=== PATIENT | male | born 1960 | race Caucasian/White ===

== ENCOUNTER → 2018-06-21 | Outpatient (CLI) | payer BC | LOC: COL.VAS 08:05 | DX: I10 Essential (primary) hypertension (principal) ==

== ENCOUNTER → 2018-10-31 | Outpatient (CLI) | payer BC | LOC: COL.CARD 11:44 | DX: R00.2 Palpitations (principal); I10 Essential (primary) hypertension ==

== ENCOUNTER → 2019-03-01 | Outpatient (CLI) | payer BC | LOC: COL.RAD 07:30 | DX: S43.491A Other sprain of right shoulder joint, initial encounter (principal); M75.121 Complete rotator cuff tear or rupture of right shoulder, not specified as traumatic ==

== ENCOUNTER 2021-02-23 06:02 | Emergency (ER) | payer BC ==
[~2021-02-23] VITALS: Ht 180.3 cm; Wt 130.9 kg
[2021-02-23 06:14] VITALS: BP 125/95; TEMP 98.2
[2021-02-23 06:30] LABS: COLLECTION METHOD CLEAN CATCH
[2021-02-23 06:49] LABS: BASO % 0.3 % (0.0-2.0); EOS % 0.3 % (0-4.0); GRAN # 9.5 (1.4-6.5); GRAN % 81.6 % (42.2-75.2); HEMATOCRIT 47.8 % (42.0-52.0); HEMOGLOBIN 15.9 g/dl (13.5-18.0); LYMPH # 1.4 (1.2-3.4); LYMPH % 12.3 % (20.0-51.0); MEAN CELL VOLUME 87 fl (80.0-100.0); MEAN CORPUSCULAR HEMOGLOBIN 29 pg (27.0-31.0); MEAN CORPUSCULAR HGB CONC 33 g/dl (33.0-37.0); MEAN PLATELET VOLUME 9.7 fl (7.4-10.4); MONO # 0.6 (0.1-0.6); MONO % 5.1 % (1.7-9.3); PLATELET COUNT 249 K/mm3 (130-400); RED BLOOD COUNT 5.51 M/mm3 (4.20-5.60)
[2021-02-23 06:58] LABS: CALCIUM 9.6 mg/dL (8.4-10.2); CREATININE, serum 1.31 (0.66-1.25); POTASSIUM 4.4 mmol/L (3.4-5.0)
[2021-02-23 07:08] LABS: MUCOUS Present /lpf; PH 5 (5-8); SQUAMOUS EPITHELIAL None Seen /hpf; URINE APPEARANCE Clear; URINE BACTERIA None Seen /hpf; URINE BILIRUBIN Negative (NEGATIVE); URINE BLOOD 1+ (NEGATIVE); URINE COLOR Yellow; URINE GLUCOSE 3+ (NEGATIVE); URINE KETONE Negative (NEGATIVE); URINE LEUKOCYTE ESTERASE Negative (NEGATIVE); URINE NITRATE Negative (NEGATIVE); URINE PROTEIN(semi-quant) Negative (NEGATIVE); URINE UROBILINOGEN Negative (NEGATIVE)
[2021-02-23 07:30] VITALS: PULSE 63
== END 2021-02-23 07:30 | disposition home or self-care (01) ==
LOC: COL.ER 06:02
PROVIDERS: Emergency Medicine
DX: R10.9 Unspecified abdominal pain (principal); Z88.5 Allergy status to narcotic agent; Z87.442 Personal history of urinary calculi
CPT/HCPCS: J2405

== ENCOUNTER 2021-02-24 22:53 | Emergency (ER) | payer BC ==
[~2021-02-24] VITALS: Ht 180.3 cm; Wt 129.5 kg
[2021-02-24 23:30] VITALS: TEMP 98.9
[2021-02-25 00:34] LABS: COLLECTION METHOD CLEAN CATCH
[2021-02-25 00:40] LABS: MUCOUS Present /lpf; PH 5 (5-8); SQUAMOUS EPITHELIAL None Seen /hpf; URINE APPEARANCE Clear; URINE BACTERIA None Seen /hpf; URINE BILIRUBIN Negative (NEGATIVE); URINE BLOOD 1+ (NEGATIVE); URINE COLOR Straw; URINE GLUCOSE 3+ (NEGATIVE); URINE KETONE Trace (NEGATIVE); URINE LEUKOCYTE ESTERASE Negative (NEGATIVE); URINE NITRATE Negative (NEGATIVE); URINE PROTEIN(semi-quant) Negative (NEGATIVE); URINE RBC 0-2 /hpf; URINE UROBILINOGEN Negative (NEGATIVE)
[2021-02-25 01:01] LABS: BASO # 0.1 (0.0-0.2); BASO % 0.4 % (0.0-2.0); EOS # 0.1 (0.0-0.7); EOS % 0.6 % (0-4.0); GRAN % 77.2 % (42.2-75.2); HEMATOCRIT 45.9 % (42.0-52.0); HEMOGLOBIN 15.1 g/dl (13.5-18.0); LYMPH # 1.7 (1.2-3.4); LYMPH % 11.8 % (20.0-51.0); MEAN CELL VOLUME 87 fl (80.0-100.0); MEAN CORPUSCULAR HEMOGLOBIN 29 pg (27.0-31.0); MEAN CORPUSCULAR HGB CONC 33 g/dl (33.0-37.0); MEAN PLATELET VOLUME 9.7 fl (7.4-10.4); MONO # 1.4 (0.1-0.6); MONO % 9.6 % (1.7-9.3); PLATELET COUNT 226 K/mm3 (130-400); RED BLOOD COUNT 5.28 M/mm3 (4.20-5.60); REDCELL DISTRIBUTION WIDTH-CV 13.2 % (11.5-14.5)
[2021-02-25 01:12] LABS: ALBUMIN 4.2 gm/dL (3.5-5.0); BILIRUBIN,TOTAL 0.7 mg/dL (0.0-1.0); CALCIUM 9.7 mg/dL (8.4-10.2); CREATININE, serum 1.79 (0.66-1.25); POTASSIUM 4.4 mmol/L (3.4-5.0); TOTAL PROTEIN 7.7 gm/dL (6.4-8.2)
[2021-02-25] MEDS ORDERED: VANTIN 200200 MG/TAB PO (01:45)
[2021-02-25] MEDS ORDERED: FLOMAX 0.40.4 MG/CAP PO (01:45)
[2021-02-25 02:00] VITALS: BP 130/80; PULSE 80
[2021-02-26] MEDS ORDERED: NORVASC 5MG5 MG/TAB PO (15:07)
[2021-02-26] MEDS ORDERED: VASOTEC20 MG PO (15:07)
[2021-02-26] MEDS ORDERED: ASPIRIN 81M81 MG/TA2 PO (15:08)
[2021-02-26] MEDS ORDERED: TOPROL XL100 MG PO (15:08)
[2021-02-26] MEDS ORDERED: LIPITOR 80MG80 MG PO (15:08)
[2021-02-26] MEDS ORDERED: FARXIGA5 PO (15:09)
[2021-02-26] MEDS ORDERED: FLOMAX 0.40.4 MG/CAP PO (15:09)
[2021-02-26] MEDS ORDERED: MAXZIDE-25MG TA1 TAB PO (15:10)
== END 2021-02-25 02:06 | disposition home or self-care (01) ==
LOC: COL.ER 22:53
PROVIDERS: Emergency Medicine
DX: N13.2 Hydronephrosis with renal and ureteral calculous obstruction (principal); D72.829 Elevated white blood cell count, unspecified; I10 Essential (primary) hypertension; Z88.5 Allergy status to narcotic agent
CPT/HCPCS: J0696; J1885

== ENCOUNTER 2021-02-26 14:39 | Day surgery (SDC) | payer BC ==
[~2021-02-26] VITALS: Ht 180.3 cm; Wt 83.7 kg
[~2021-02-26 14:39] MED LIST: FLOMAX 0.40.4 MG/CAP PO; VANTIN 200200 MG/TAB PO
[2021-02-26] MEDS ORDERED: VASOTEC20 MG PO (15:07)
[2021-02-26] MEDS ORDERED: NORVASC 5MG5 MG/TAB PO (15:07)
[2021-02-26] MEDS ORDERED: ASPIRIN 81M81 MG/TA2 PO (15:08)
[2021-02-26] MEDS ORDERED: TOPROL XL100 MG PO (15:08)
[2021-02-26] MEDS ORDERED: LIPITOR 80MG80 MG PO (15:08)
[2021-02-26] MEDS ORDERED: FLOMAX 0.40.4 MG/CAP PO (15:09)
[2021-02-26] MEDS ORDERED: FARXIGA5 PO (15:09)
[2021-02-26] MEDS ORDERED: MAXZIDE-25MG TA1 TAB PO (15:10)
[2021-02-26 15:11] VITALS: BP 133/67; PULSE 73; TEMP 98.1
--- NOTE | 2021-02-26 16:20 | NUR ---
The patient reports increased pain at this time and appeas restless in the bed. Kristofer Martinez CRNA was notified and orders were obtained.
--- NOTE | 2021-02-26 16:24 | NUR ---
The patient was given a PRN dose of Dilaudid 0.5 mg IV at this time. The patient requests to sit up on the side of the bed to help with the discomfort. Call light is within reach. Will continue to monitor the patient.
--- NOTE | 2021-02-26 17:32 | NUR ---
The patient reports increased pain again at this time and was given another PRn dose of Dilaudid 0.5 mg IV at this time. The patient remains sitting up on the side of the bed at this time. Call light is within reach. Will continue to monitor the patient.
--- NOTE | 2021-02-26 17:50 | NUR ---
The patient was taken back via cart to the operating room at this time. The patient's chart was sent with him to surgery. The patient's belongins will be taken over to the recovery room and will be transferred with the patient to the 3rd floor post operatively.
[2021-02-26 19:04] VITALS: BP 139/71; PULSE 77; TEMP 98.3
[2021-02-26 19:15] VITALS: BP 114/58; PULSE 71; TEMP 98.3
[2021-02-26 19:19] VITALS: BP 139/71; PULSE 77; TEMP 98.3
[2021-02-26 19:49] VITALS: BP 128/83; PULSE 85; TEMP 98.3
[2021-02-26 20:19] VITALS: BP 125/63; PULSE 70; TEMP 98.3
--- NOTE | 2021-02-26 23:52 | NUR ---
PATIENT DISCHARGED AT 2100. PATIENT A&O X'S4, DENIES PAIN OR NAUSEA, VOIDING WITHOUT DIFFICULTY, ON ROOM AIR, V/S STABLE, AND DENIES ANY NEEDS. IV REMOVED. EDUCATED PATIENT ON DISCHARGE INSTRUCTIONS AND PATIENT VERBALIZED UNDERSTANDING. PATIENT LEFT FLOOR VIA WHEELCHAIR ESCORTED BY THIS NURSE. PATIENT GOING HOME WITH .
== END 2021-02-26 21:00 | disposition home or self-care (01) ==
LOC: SDCO 14:39 → SURG 19:16 → SDCO 21:00
DX: N20.1 Calculus of ureter (principal); N42.0 Calculus of prostate; N35.919 Unspecified urethral stricture, male, unspecified site; I10 Essential (primary) hypertension; E78.5 Hyperlipidemia, unspecified; G47.33 Obstructive sleep apnea (adult) (pediatric); E11.9 Type 2 diabetes mellitus without complications; N39.0 Urinary tract infection, site not specified; F17.220 Nicotine dependence, chewing tobacco, uncomplicated; Z20.822 Contact with and (suspected) exposure to COVID-19; Z79.82 Long term (current) use of aspirin; Z79.899 Other long term (current) drug therapy; Z95.818 Presence of other cardiac implants and grafts; Z79.84 Long term (current) use of oral hypoglycemic drugs
CPT/HCPCS: OP; C1769; C2617; J0690; J1100; J1170; J1885; J2405; J2704; J3010; J7030; J7120; Q9967